=== PATIENT | male | born 1960 | race Caucasian/White ===

== ENCOUNTER → 2018-03-19 | Outpatient (CLI) | payer OTHER ==
[~2018-03-19] MED LIST: ALEN70TA3 PO; ASPI-496 PO; CHOL2000 PO; CYAN1TAB29 PO; DILT120C11 PO; LOSA25TA2 PO; METF500T4 PO; MIDO5TAB PO; MULT-658 PO; NIAC500T PO; PRED5TAB19 PO; PYRI60TA2 PO; REGADENOSON 0.4 MG/5 ML SYRINGE ONE; ROSU20TA PO; TEST100V IM
== END | disposition home or self-care (01) ==
LOC: CFH 07:56
PROVIDERS: ATTEND Internal Medicine Cardiovascular Disease
DX: I42.9 Cardiomyopathy, unspecified (principal)
CPT/HCPCS: 78452; 93017; A9502; J2785

== ENCOUNTER → 2018-04-03 | Outpatient (CLI) | payer OTHER ==
[~2018-04-03] MED LIST changes: -METF500T4 PO; +METF500T5 PO; -REGADENOSON 0.4 MG/5 ML SYRINGE ONE
== END ==
LOC: EDSTATUS 03-21 08:00 → CFH 15:30 → EDSTATUS 16:00
PROVIDERS: ATTEND Internal Medicine Cardiovascular Disease
DX: I35.0 Nonrheumatic aortic (valve) stenosis (principal)
CPT/HCPCS: 93306

== ENCOUNTER 2019-03-21 06:53 | Outpatient (CLI) | payer OTHER ==
[~2019-03-21 06:53] MED LIST changes: +ASPI-515 PO; +AZIT500T5 PO; +CHOL5000 PO; +CYAN50008 PO; +EZET10TA18 PO; +METF500T17 PO; -METF500T5 PO; -MIDO5TAB PO; +MIDO5TAB9 PO; +NIAC500T9 PO; +OSEL75CA26 PO; -ROSU20TA PO; +ROSU20TA2 PO; +TESTOSTERON; +diltiazem PO; +multivitamin
== END 2019-03-21 23:59 | disposition home or self-care (01) ==
LOC: CVU 06:53
PROVIDERS: ATTEND Internal Medicine Cardiovascular Disease
DX: I35.8 Other nonrheumatic aortic valve disorders (principal); I42.9 Cardiomyopathy, unspecified; E78.5 Hyperlipidemia, unspecified; Z95.0 Presence of cardiac pacemaker
CPT/HCPCS: 93306

== ENCOUNTER 2019-06-02 20:25 | Emergency (ER) | payer OTHER ==
[~2019-06-02] VITALS: Ht 185.4 cm; Wt 105.0 kg
[2019-06-02 23:00] VITALS: BP 100/65
== END 2019-06-02 23:01 | disposition home or self-care (01) ==
LOC: ED 22:20
DX: R00.2 Palpitations (principal); R06.02 Shortness of breath; I48.91 Unspecified atrial fibrillation; E78.5 Hyperlipidemia, unspecified; Z90.89 Acquired absence of other organs
CPT/HCPCS: 36415; 71045; 80053; 83690; 83735; 84443; 84484; 85025; 93005; 99284; Q0162

== ENCOUNTER → 2020-09-15 | Outpatient (CLI) | payer OTHER ==
[~2020-09-15] MED LIST changes: +AZIT500T10 PO; -AZIT500T5 PO; -EZET10TA18 PO; +EZET10TA70 PO; +PREDNISONE; +TADA5TAB2 PO
== END | disposition home or self-care (01) ==
LOC: CVU 14:40
PROVIDERS: ATTEND Internal Medicine Cardiovascular Disease
DX: I35.8 Other nonrheumatic aortic valve disorders (principal); I48.0 Paroxysmal atrial fibrillation; I10 Essential (primary) hypertension; R06.02 Shortness of breath
CPT/HCPCS: 93306; 93356

== ENCOUNTER 2020-09-17 08:00 | Outpatient (CLI) | payer OTHER ==
[~2020-09-17 08:00] MED LIST changes: +REGADENOSON 0.4 MG/5 ML SYRINGE ONE
== END 2020-09-17 23:59 | disposition home or self-care (01) ==
LOC: CFH 08:00
PROVIDERS: ATTEND Internal Medicine Cardiovascular Disease
DX: I10 Essential (primary) hypertension (principal); I48.0 Paroxysmal atrial fibrillation; R06.02 Shortness of breath
CPT/HCPCS: 78452; 93017; A9502; J2785

== ENCOUNTER 2021-01-21 14:28 | Outpatient (CLI) | payer OTHER ==
[~2021-01-21 14:28] MED LIST changes: -ASPI-515 PO; +ASPI-963 PO; -REGADENOSON 0.4 MG/5 ML SYRINGE ONE
[2021-01-21] MEDS ORDERED: OMNIPAQUE 350 MG/ML, 100ML BOTTLE ONE (15:23)
[2021-01-21 15:51] LABS: BASOPHILS % (AUTO) 1 % (0-1); EOSINOPHILS % (AUTO) 2 % (1-7); LYMPHOCYTES % (AUTO) 21 % (22-44); MEAN CORPUSCULAR HEMOGLOBIN 27.2 pg (27.5-34.5); MEAN CORPUSCULAR HGB CONC 32.8 g/dL (33.2-36.2); MEAN PLATELET VOLUME 7.3 fL (7.4-10.4); MONOCYTES % (AUTO) 8 % (2-9); NEUTROPHILS % (AUTO) 70 % (42-75); PLATELET COUNT 244 x10^3/uL (130-400); RED BLOOD COUNT 5.99 x10^6/uL (4.38-5.82); RED CELL DISTRIBUTION WIDTH 17.9 % (9.4-14.8)
[2021-01-21 15:54] LABS: ALANINE AMINOTRANSFERASE 36 U/L (12-78); ALBUMIN 3.5 g/dL (3.4-5.0); CALCIUM 8.9 mg/dL (8.5-10.1)
[2021-01-21 16:01] LABS: ALKALINE PHOSPHATASE 65 U/L (45-117); BILIRUBIN,TOTAL 0.5 mg/dL (0.2-1.0)
[2021-01-21 16:02] LABS: ANION GAP 6 mmol/L (5-15); CHLORIDE 105 mmol/L (98-107)
[2021-01-21 16:33] LABS: MD NO
== END 2021-01-21 23:59 | disposition home or self-care (01) ==
LOC: RAD 14:28
PROVIDERS: ATTEND Family Medicine
DX: K76.0 Fatty (change of) liver, not elsewhere classified (principal); K57.30 Diverticulosis of large intestine without perforation or abscess without bleeding; K57.32 Diverticulitis of large intestine without perforation or abscess without bleeding; I10 Essential (primary) hypertension; R42 Dizziness and giddiness; D72.829 Elevated white blood cell count, unspecified
CPT/HCPCS: 36415; 74177; 80053; 83605; 85025; 86140; Q9967